=== PATIENT | female | born 1985 | race Two or more races ===

== ENCOUNTER 2016-11-27 19:31 | Emergency (ER) | payer MEDICAID, OTHER ==
[~2016-11-27] VITALS: Ht 167.6 cm; Wt 77.0 kg
[2016-11-27 20:42] VITALS: BP 132/82
== END 2016-11-27 22:05 | disposition home or self-care (01) ==
LOC: ER 19:32
DX: J45.901 Unspecified asthma with (acute) exacerbation (principal); E11.9 Type 2 diabetes mellitus without complications
CPT/HCPCS: 99283; Z7610

== ENCOUNTER 2021-01-12 15:06 | Emergency (ER) | payer SELFPAY ==
[~2021-01-12] VITALS: Ht 162.6 cm; Wt 73.0 kg
[2021-01-12] MEDS ORDERED: insulin (15:13)
[2021-01-12 15:27] VITALS: BP 120/60
[2021-01-12] MEDS ORDERED: HYDROCODONE/ACETAMINOPHEN 5/325MG TABLET PO ONE (16:00)
[2021-01-12] MEDS ORDERED: ONDANSETRON 4MG ODT PO ONE (17:30)
[2021-01-12] MEDS ORDERED: ACET-2708 MT (18:02)
[2021-01-12] MEDS ORDERED: TRAM50TA3 MT (18:02)
[2021-01-12] MEDS ORDERED: ONDA4TAB5 MT (18:02)
== END 2021-01-12 18:54 | disposition home or self-care (01) ==
LOC: ER 15:06
DX: S42.491A Other displaced fracture of lower end of right humerus, initial encounter for closed fracture (principal); E11.9 Type 2 diabetes mellitus without complications; W01.0XXA Fall on same level from slipping, tripping and stumbling without subsequent striking against object, initial encounter; Y93.89 Activity, other specified; Y92.89 Other specified places as the place of occurrence of the external cause; Y99.8 Other external cause status; Z79.899 Other long term (current) drug therapy
CPT/HCPCS: 29105; 73060; 73080; 73110; 73130; 99284; Q0162; A4565